=== PATIENT | female | born 1945 | race Caucasian/White ===

== ENCOUNTER → 2021-01-06 15:05 | Outpatient (CLI) | payer MEDICARE, OTHER, SELFPAY ==
--- NOTE | 2021-01-06 15:20 | CT_ITS ---
PROCEDURE: CT ABDOMEN PELVIS WO/W CON CLINICAL INDICATION: renal mass Possible right renal mass COMPARISON: No exams were available for comparison TECHNIQUE: IV Contrast: 75ML Isovue 370 Oral Contrast None Axial images obtained with sagittal and coronal reformats. All CT scans at the facility use one or more dose reduction, viz: automated exposure control, ma/kV adjustment per patient size (including targeted exams where dose is matched to indication, i.e. head), or iterative reconstruction technique. FINDINGS: LOWER THORAX: No acute finding ABDOMEN & PELVIS: There is no intraperitoneal free air or free fluid. There is a nonenhancing 1.2 x 0.8 by 1.4 centimeter right renal peripelvic cyst. The kidneys are otherwise normal in size and appearance and demonstrate normal excretion of contrast. There is a nonenhancing hepatic lesion adjacent to the gallbladder. This demonstrates peripheral enhancement without fill-in. Hepatic ultrasound recommended for further evaluation. There is a small wedge-shaped area of peripheral hepatic fatty infiltration at the lateral falciform ligament. There are changes from prior gastric surgery. There is extensive sigmoid diverticulosis without CT evidence of acute diverticulitis. There are scattered diverticuli throughout the remainder of the colon. The appendix is not identified as an independent structure but there are no secondary signs to suggest acute appendicitis. There is no abdominal or pelvic adenopathy. There is minimal scattered atherosclerotic calcification in the vasculature. There is osteopenia. There are scattered degenerative changes in the skeleton. IMPRESSION: 1. Benign nonenhancing right renal cyst. 2. Peripherally enhancing hepatic lesion. Hepatic ultrasound recommended for further evaluation. 3. Severe sigmoid diverticulosis without CT evidence of diverticulitis. Dictated by: Sharon Stephens MD 01/06/2021 17:14 Sharon Stephens MD in [facility] 01/06/2021 17:14
[2021-01-06 15:41] LABS: Blood Urea Nitrogen 15 mg/dl (7-17); Estimated Glomerular Filt Rate 70 ml/min (>60); GFR (African American) 85 ML/MIN (>60)
== END ==
PROVIDERS: Visit Provider Urology
DX: N28.89 Other specified disorders of kidney and ureter (principal)
CPT/HCPCS: 36415; 74178; 82565; 84520; Q9967

== ENCOUNTER → 2021-01-23 10:45 | Outpatient (CLI) | payer MEDICARE, OTHER, SELFPAY ==
--- NOTE | 2021-01-23 10:45 | US_ITS ---
PROCEDURE: US LIVER CLINICAL INDICATION: liver lesion Follow-up liver lesion COMPARISON: CT CT ABDOMEN PELVIS WO/W CON from 01/06/2021 FINDINGS: PANCREAS: Unremarkable. No obvious mass or abnormal fluid collection. No ductal dilatation LIVER: In the left lobe of the liver anterior to the gallbladder there is a 2 cm cyst corresponding to the CT abnormality. RIGHT KIDNEY: Unremarkable. Normal size and echogenicity. No hydronephrosis GALLBLADDER: There are multiple small gallstones. No gallbladder wall thickening, pericholecystic fluid, or biliary dilatation is evident. IMPRESSION: 1. CT abnormality of the left lobe of the liver corresponds to a benign-appearing cyst. 2. Cholelithiasis Dictated by: Jarred Evans MD 01/23/2021 12:58 Jarred Evans MD in [facility] 01/23/2021 12:58
== END ==
PROVIDERS: PCP Family Medicine; Visit Provider Urology
DX: K76.9 Liver disease, unspecified (principal)
CPT/HCPCS: 76705